=== PATIENT | male | born 1980 | race Caucasian/White ===

== ENCOUNTER 2020-02-21 14:09 | Emergency (ER) | payer OTHER, SELFPAY ==
[2020-02-21 14:50] VITALS: BP 122/81; PULSE 118; RESP 18; TEMP 36.6; O2SAT 98; BMI 28.2
[2020-02-21 15:25] VITALS: PULSE 105; RESP 16; TEMP 36.6; O2SAT 98
--- NOTE | 2020-02-21 15:48 | CT_ITS ---
EXAMINATION: CT ABDOMEN AND PELVIS WITHOUT CONTRAST CLINICAL INFORMATION: Left back pain radiating to left leg. Constipation. COMPARISON: CT abdomen and pelvis noncontrast 11/01/2018 TECHNIQUE: Multidetector volumetric imaging was performed from the superior aspect of the liver through the pubic symphysis. Sagittal and coronal reformatted images were obtained on the technologist's workstation. This CT examination was performed using dose optimization techniques as appropriate, variously including the following: *Automated exposure control *Adjustment of mA and/or kV according to patient size (this includes techniques or standardized protocols for targeted exams where dose is matched to indication/reason for exam; i.e. extremities or head) *Use of iterative reconstruction technique DLP: 616 mGy-cm FINDINGS: LUNG BASES: The visualized lung bases are unremarkable. LIVER, GALLBLADDER, AND BILIARY TREE: Liver is normal in size and smooth in contour. There is mild diffuse hepatic steatosis again seen with some focal sparing adjacent to the gallbladder. No intrahepatic parenchymal lesion or biliary ductal dilatation. The gallbladder is unremarkable with no evidence of radiopaque gallstones, gallbladder wall thickening, or obvious pericholecystic inflammatory changes. PANCREAS: Unremarkable. SPLEEN: Unremarkable. ADRENAL GLANDS: Unremarkable. KIDNEYS AND URETERS: The kidneys are normal in size and smooth in contour. There is no hydronephrosis, hydroureter, or perinephric stranding. Again, there are multiple small nonobstructing intrarenal calculi, approximately 5 on each side, largest left interpolar 5 x 3 mm, at least 345 HU attenuation and 9 cm from the flank. There are no ureteral calculi. BLADDER: Unremarkable. GASTROINTESTINAL TRACT: No bowel obstruction or inflammatory changes in bowel or mesentery. Normal appendix. No ascites or fluid collection. ABDOMINAL WALL: No significant hernia is appreciated. LYMPH NODES: No lymphadenopathy. VASCULAR: Unremarkable. PELVIC VISCERA: Unremarkable. OSSEOUS STRUCTURES: Unremarkable. CT/CT abdomen pelvis wo con IMPRESSION: 1. Multiple small bilateral nonobstructing renal calculi. No ureteral calculi, hydronephrosis, or perinephric stranding. 2. No inflammatory changes in bowel or mesentery. No ascites. Normal appendix. 3. Mild hepatic steatosis.
--- NOTE | 2020-02-21 16:02 | ED_ITS ---
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 Denies any other associated symptoms related to this. 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 Related Data Previous Rx's Medication Instructions Recorded cyclobenzaprine 10 mg PO TID PRN #10 tab 02/21/20 ibuprofen 800 mg PO Q8H PRN #14 tab 02/21/20 oxycodone-acetaminophen [Percocet] 1 tab PO Q6H PRN #10 tab 02/21/20 prednisone 40 mg PO DAILY 5 Days #10 tab 02/21/20 Allergies Allergy/AdvReac Type Severity Reaction Status Date / Time No Known Allergies Allergy Verified 02/21/20 15:29 [No Known Allergies*] Review of Systems Review of Systems: Constitutional : No trauma, No Weight loss, No Fever, No Chills, ENT/Mouth : No Hearing loss, No Ear Pain, No Nasal Congestion, No Sinus Pain, No Hoarseness, No sore throat, No Rhinorrhea, No Swallowing Difficulty Cardiovascular : No Chest Pain, No SOB Respiratory : No Cough, No Dyspnea Gastrointestinal : No Nausea, No Vomiting, No Diarrhea, No abdominal Pain, No Hematochezia, No Melena Genitourinary : No Dysuria, No Urinary Frequency, No Hematuria, No Urinary retention/incotience or Bowel Incontinence, + Constipation Musculoskeletal : + Back pain, No neck pain, No joint stiffness, No joint swelling Skin : No Skin Lesions, No rash or signs of infection Neuro : No Weakness, No radiation, No Numbness, No Paresthesias, No headache, no loss of bowel or bladder incontinence, no saddle anesthesia Denies history of IV drug usage. Yes all other systems are reviewed and are negative PMFSH Past Medical History Attestation statement: The following information was validated with the patient. Social History Social History Alcohol intake: never Smoked in Last 30 Days: No Use of substances other than those prescribed or required for medical reasons: No Advance Directives: No Advance Directives Information Provided: Yes Physical Exam Vital Signs: Vital Signs: Last Vital Signs Temp 97.9 F 02/21/20 15:25 Pulse 105 H 02/21/20 15:25 Resp 16 02/21/20 15:25 BP 122/81 02/21/20 14:50 Pulse Ox 98 02/21/20 15:25 Body Mass Index 28.2 vital signs have been reviewed as normal and appeared to be correct. Blood pressure normal. Heart rate normal. Respiration rate normal. Temperature normal. Oxygen saturation normal. Appearance: Alert. Oriented X3. No acute dis tress. Head: Normal external exam. Normocephalic. Atraumatic. No Ball signs noted. No raccoon eyes noted Eyes: PERRLA. EOMI. Conjunctiva and sclera normal. Eyelids normal. ENT: EAC normal. TM's Normal. Pharynx normal. Uvula midline. Moist mucous membranes. No trismus noted. No drooling noted. No muffled voice noted. Neck: Normal inspection. Neck supple. FROM. No adenopathy. Thyroid Normal. No meningeal signs. No neck mass noted. CVS: Normal heart rate and rhythm. Heart sound normal. No murmurs noted. Pulses normal throughout. Respiratory: No respiratory distress. Painless inspiration. Breath sounds normal. No wheezes/rales/rhonchi noted. Chest nontender. No accessory muscle usage noted or decreased air movement noted. Abdomen: Soft and nontender. Bowel sounds normal in all 4 quadrants. No distention noted. No organomegaly noted. No visible injury noted. Back: No CVA tenderness. Full range of motion noted. No obvious deformities, or edema. Mild para-spinal muscular tenderness from lumbar region to coccyx. Full ROM in back and lower extremities. 5/5 strength hip extension/flexion, abduction, adduction. Mild Lumbar pain with hip flexion against resistance. Straight leg raise test negative on right; Straight leg raise test negative on left; Reflexes normal ankle and knee bilaterally; EHL motor strength normal bilaterally Skin: Skin warm and dry. Normal skin color. Normal skin turgor. No rashes/lesions/lacerations noted. Extremities: No lower extremity edema. Extremities exhibit normal range of motion. Extremities nontender. Neuro: Oriented X 3. No motor deficit. No sensory deficit. Reflexes normal. Course Course Course Narrative: Pt c likely muscular pain, but could be herniated disc. Neuro exam shows no deficits. Not c/w AAA/epidural abscess/dissection.No high risk Hx (Incont, fever, immunosupp, recent surgery/LP, coag, signif trauma, wt loss, puls mass, hx/o Ca, TB, or IVDU) to warrant MRI/CT today. Not c/w Pyelo/UTI/spinal fx. Not cauda equina syndrome. Will obtain a CT scan abdomen pelvis without contrast to evaluate for any kidney stones or any other acute processes if negative will DC c meds and f/u. MDM - Back Pain/Injury Medical Records Attestation: I reviewed the patient's medical records. Imaging Data CT scan - abdomen: Attestation: I personally reviewed and interpreted this imaging study as follows: Radiologist's impression: FINDINGS: LUNG BASES: The visualized lung bases are unremarkable. LIVER, GALLBLADDER, AND BILIARY TREE: Liver is normal in size and smooth in contour. There is mild diffuse hepatic steatosis again seen with some focal sparing adjacent to the gallbladder. No intrahepatic parenchymal lesion or biliary ductal dilatation. The gallbladder is unremarkable with no evidence of radiopaque gallstones, gallbladder wall thickening, or obvious pericholecystic inflammatory changes. PANCREAS: Unremarkable. SPLEEN: Unremarkable. ADRENAL GLANDS: Unremarkable. KIDNEYS AND URETERS: The kidneys are normal in size and smooth in contour. There is no hydronephrosis, hydroureter, or perinephric stranding. Again, there are multiple small nonobstructing intrarenal calculi, approximately 5 on each side, largest left interpolar 5 x 3 mm, at least 345 HU attenuation and 9 cm from the flank. There are no ureteral calculi. BLADDER: Unremarkable. GASTROINTESTINAL TRACT: No bowel obstruction or inflammatory changes in bowel or mesentery. Normal appendix. No ascites or fluid collection. ABDOMINAL WALL: No significant hernia is appreciated. LYMPH NODES: No lymphadenopathy. VASCULAR: Unremarkable. PELVIC VISCERA: Unremarkable. OSSEOUS STRUCTURES: Unremarkable. CT/CT abdomen pelvis wo con IMPRESSION: 1. Multiple small bilateral nonobstructing renal calculi. No ureteral calculi, hydronephrosis, or perinephric stranding. 2. No inflammatory changes in bowel or mesentery. No ascites. Normal appendix. 3. Mild hepatic steatosis. Discharge Plan Discharge Clinical Impression: Lumbar radiculopathy Sciatica Qualifiers: Laterality: left Qualified Code(s): M54.32 - Sciatica, left side Patient Disposition: Home, Self-Care Instructions: Sciatica (ED), Lumbar Radiculopathy (ED), Lower Back Exercises (ED) Prescriptions: New cyclobenzaprine 10 mg tablet 10 mg PO TID PRN (Reason: muscle spasm) Qty: 10 RF: 0 ibuprofen 800 mg tablet 800 mg PO Q8H PRN (Reason: pain) Qty: 14 RF: 0 oxycodone-acetaminophen [Percocet] 5-325 mg tablet 1 tab PO Q6H PRN (Reason: pain) Qty: 10 RF: 0 prednisone 20 mg tablet 40 mg PO DAILY 5 Days Qty: 10 RF: 0 Referrals: Sandra Valverde MD [Primary Care Provider] - 2 days Stand Alone Forms: Work/School Release Print Language: Georgian
[2020-02-21] MEDS: NaPROXEN 500 MG TABLET PO (17:09)
== END 2020-02-21 17:46 | disposition home or self-care (01) ==
PROVIDERS: Emergency Provider Emergency Medicine; PCP Internal Medicine
DX: M54.16 Radiculopathy, lumbar region (principal); M54.42 Lumbago with sciatica, left side; Z79.899 Other long term (current) drug therapy
CPT/HCPCS: 74176; 99284

== ENCOUNTER 2020-04-02 10:41 | Outpatient (REF) | payer OTHER, SELFPAY ==
[2020-04-02 13:36] LABS: Hematocrit 45.6 % (42-52); Hemoglobin 15.8 g/dl (14.0-18.0); Mean Corpuscular HGB Conc 34.6 g/dl (31.0-36.0); Mean Corpuscular Hemoglobin 30.3 pg (27.0-33.0); Mean Corpuscular Volume 87.4 fL (80-98); Mean Platelet Volume 11.6 fL (9.4-12.4); Platelet Count 168 X10*3/uL (160-400); Red Blood Count 5.22 X10*6/uL (4.60-5.80); White Blood Count 7.2 X10*3/uL (4.8-10.8)
[2020-04-02 14:15] LABS: Alanine Aminotransferase 99 U/L (0-40); Albumin Level 4.3 g/dL (3.5-5.0); Alkaline Phosphatase 106 U/L (39-117); Anion Gap 11 (12-20); Aspartate Amino Transferase 50 U/L (5-37); Bilirubin Direct 0.4 mg/dL (0.0-0.5); Blood Urea Nitrogen 12 mg/dL (9-16); Calcium 9.2 mg/dL (8.4-10.2); Carbon Dioxide 30 mmol/L (22-29); Chloride 104 mmol/L (96-108); Cholesterol 164 mg/dL; Estimated Glomerular Filt Rate > 60; Glucose Fasting 146 mg/dL (60-99); HDL Cholesterol 38 mg/dL; LDL Cholesterol Calculated 99 mg/dl; Potassium 3.9 mmol/l (3.3-5.1); Sodium 141 mmol/L (135-145); Total Protein 7.1 g/dL (6.5-8.0); Triglycerides 139 mg/dL
[2020-04-02 14:24] LABS: TSH reflex Free T4 0.88 mIU/mL (0.32-4.0)
== END 2020-04-02 10:42 | disposition home or self-care (01) ==
LOC: HO.WFDLDS 10:41
PROVIDERS: Visit Provider Hospitalist
DX: Z00.00 Encounter for general adult medical examination without abnormal findings (principal); M54.32 Sciatica, left side
CPT/HCPCS: 36415; 80048; 80061; 80076; 84443; 85027

== ENCOUNTER → 2020-12-19 10:04 | Outpatient (BNVA) | payer OTHER, SELFPAY | PROVIDERS: PCP Hospitalist; Referring Provider Hospitalist; Visit Provider Physician Assistant | DX: K21.9 Gastro-esophageal reflux disease without esophagitis (principal) | CPT/HCPCS: 99212 ==

== ENCOUNTER 2021-02-13 07:43 | Day surgery (SDC) | payer OTHER, SELFPAY ==
[2021-02-13 08:09] VITALS: BP 109/76; PULSE 81; RESP 16; TEMP 37.1; O2SAT 97
--- NOTE | 2021-02-13 08:23 | HO.ANESPROP2 ---
[facility] Active Problems Active Problems: All Active Problems (Updated 01/06/21 @ 15:37 by Melissa Singleton NP) Constipation (Acute) Neck pain on left side (Acute) Gastritis (Acute) Enlarged skin mole (Acute) Psoriasis (Acute) Otitis media (Acute) Chronic GERD (Acute) Stomach pain (Acute) Elevated liver enzymes (Acute) Well adult exam (Acute) Left sciatic nerve pain (Acute) Impacted cerumen of right ear (Acute) Fair palsy (Acute) Hernia (Acute) Balanitis (Acute) Hydronephrosis (Acute) Ureteral stone (Acute) Family History Family History Father Testicular cancer Mother Hypertension Diabetes Paternal Grandmother Stroke Maternal Uncle Colon cancer Paternal Uncle Colon cancer Sister Breast cancer Surgical History Surgical History No pertinent past surgical history History of Problems with Anesthesia: No Social History Social History Housing: House Alcohol intake: never Patient Tobacco Use Status: Never used Tobacco Use of substances other than those prescribed or required for medical reasons: No Are you DNR?: No Advance Directives: No Advance Directives Information Provided: Yes service: No Current occupational status: employed Current occupation: [employer] Current occupational exposures/hazards: No Meds Allergies Allergy/AdvReac Type Severity Reaction Status Date / Time No Known Allergies Allergy Verified 02/13/21 08:48 [No Known Allergies*] Exam Exam Date and Time: February 13, 2021 0823 Height,Weight and Vital Signs: Last Vital Signs Temp 98.7 F 02/13/21 08:09 Pulse 81 02/13/21 08:09 Resp 16 02/13/21 08:09 BP 109/76 02/13/21 08:09 Pulse Ox 97 02/13/21 08:09 Airway Mallampati Class: III TM Dist: >3cm Neck ROM: Full Loose/Missing/Broken Teeth: No Heart: RRR Lungs: CTA Assessment and Plan Assessment Anesthesia Assessment: Anesthesia Plan Discussed and Chart Reviewed Final Anesthetic Review History of Problems with Anesthesia: No NPO: Yes ASA Class: II Final Preanesthetic Review: Meds/Allgs Chart Reviewed, Consent Obtained/Reviewed and Anes Risks/Benef Reviewed Patient Risk: Low Procedure Risk: Intermediate Anesthetic Plan Anesthetic Plan: MAC: Disposition: Standard PACU
[2021-02-13 08:45] VITALS: BMI 29.0
[2021-02-13] MEDS: Lactated Ringers 1,000 ML 50 ML IVCONT (09:00)
--- NOTE | 2021-02-13 09:09 | MHC.SHP ---
Pre-Procedural Eval Section A Date of Service: 02/13/21 Section B Chief Complaint: Chronic GERD Details of Present Illness: CRC in uncles Relevant Family History (Specify if Yes): Yes Relevant Social History: None Present Medications: see Short Stay Collaborative assessment Medical History: Significant History (Constipation (Acute) Neck pain on left side (Acute) Gastritis (Acute) Enlarged skin mole (Acute) Psoriasis (Acute) Otitis media (Acute) Chronic GERD (Acute) Stomach pain (Acute) Elevated liver enzymes (Acute) Well adult exam (Acute) Left sciatic nerve pain (Acute) Impacted cerumen of right ear ([place]) History of Previous Operations: No relevant previous surgery Allergies: Allergies Allergy/AdvReac Type Severity Reaction Status Date / Time No Known Allergies Allergy Verified 02/13/21 08:48 [No Known Allergies*] Review of Systems Sugical H&P ROS: Negative: Constitution, Cardiovascular, Respiratory, Neurological, Psychiatric, Hem-Onc, Allergic/Immunologic, Gastrointestinal, Genitourinary, Musculoskeletal, Integumentary, Endocrine and Eyes/Ears/Nose/Throat Exam Surgical H&P Exam: Normal: HEENT, Normal: Heart, Normal: Lungs, Normal: Extremities, Normal: Abdomen, Normal: Skin and Normal: Neurological Plan Diagnosis/Plan: Unchanged I have reviewed the history and physical and performed a pertinent physical examination on my patient. No changes have occurred unless specified. EGD for evaluation of gERD and epigastric discomfort.
--- NOTE | 2021-02-13 09:18 | PM.OP ---
Brief Operative Note Date of Service: 02/13/21 Pre-op diagnosis: GERD and epigastric discomfort Post-op diagnosis: same Procedure: see op note Surgeon: Jordan Mcdaniel MD Anesthesia: MAC Was an Process Improvement Analyst used for this Procedure?: No Estimated blood loss (mL): 0 Condition: stable Disposition: PACU
--- NOTE | 2021-02-13 09:19 | W.PM.OPN ---
Operative Note Operative Note Date of Service: 02/13/21 Narrative: Procedure Description: EGD FLEXIBLE TRANSORAL UPPER GASTROINTESTINAL ENDOSCOPY UPPER ENDOSCOPY Consent: Indications for the procedure and potential complications of bleeding, perforation, reaction to medications and missed diagnosis were discussed with the patient and informed consent was obtained. Instrument: Olympus GIF H 190 J mid size upper endoscope Monitoring: Vital signs and clinical assessment, continuous EKG monitoring, Pulse oximetry, Carbon Dioxide monitoring and blood pressure monitoring were done throughout the procedure. Procedure: The patient was placed in the left lateral decubitis position and pre-procedure medications were administered and a bite block was placed. The endoscope was inserted into the mouth and advanced under direct vision to the third part of duodenum. A careful inspection was made as the upper endoscope was withdrawn including a retroflexed examination of the proximal stomach; Findings and interventions are described below. Findings: Larynx:normal Esophagus: GE junction at 41 cm, diaphragm hiatus at 41 cm, mild esophagitis at GEJ bx taken as well as random esophagus Stomach: Moderate severe Patchy gastric erythema. Biopsies were obtained. Grade 2 flap valve on retroflexed examination of the cardia. Duodenum: Normal bulb and descending duodenum, bx taken Intervention: Biopsies as noted above Impression/Findings: gastritis esophagitis PLAN: await bx, if h pylori pos then treat cont with omeprazole for the moment confirm nsaid hx
[2021-02-13 09:43] VITALS: BP 101/64; PULSE 102; RESP 16; TEMP 36.3; O2SAT 98
[2021-02-13 09:58] VITALS: BP 101/72; PULSE 89; RESP 18; TEMP 36.2; O2SAT 97
== END 2021-02-13 10:25 | disposition home or self-care (01) ==
PROVIDERS: PCP Internal Medicine; Visit Provider Internal Medicine Gastroenterology
PROC: 0DJ08ZZ Inspection of Upper Intestinal Tract, Via Natural or Artificial Opening Endoscopic (ICD-10-PCS; CPT 43235; principal; 2021-02-13 09:30)
DX: K21.9 Gastro-esophageal reflux disease without esophagitis (principal); K29.50 Unspecified chronic gastritis without bleeding; K20.80 Other esophagitis without bleeding; K44.9 Diaphragmatic hernia without obstruction or gangrene; Z79.899 Other long term (current) drug therapy
CPT/HCPCS: 43239; 88300; 88305; 88342